=== PATIENT | female | born 1970 | race Caucasian/White ===

== ENCOUNTER 2021-04-18 06:45 | Emergency (ER) | payer SELFPAY ==
[2021-04-18] MEDS ORDERED: CEPHALEXIN500 MG PO (07:44)
== END 2021-04-18 08:17 | disposition home or self-care (01) ==
LOC: ER1 06:45
DX: L03.116 Cellulitis of left lower limb (principal); I10 Essential (primary) hypertension; Z79.899 Other long term (current) drug therapy; F17.210 Nicotine dependence, cigarettes, uncomplicated
CPT/HCPCS: 96372; 99283; J1885